=== PATIENT | male | born 1975 | race Hispanic/Latino ===

== ENCOUNTER 2021-08-29 16:03 | Emergency (ER) | payer SELFPAY ==
--- NOTE | 2021-08-29 19:02 | Emergency Department Report ---
ED Altered Mental Status HPI - General Chief Complaint: Altered Mental Status Stated Complaint: COMBATIVE BEHAVIOR Source: patient Mode of arrival: Stretcher Limitations: No Limitations - History of Present Illness Initial Comments: 45 yo M brought in by the city police with AMS after patient was pickup where he was very combative and swinging at people. Pt will not talk to me but just mumble his words. History is very limited at this time. No other modifying or associated factor reported. - Related Data Allergies Allergy/AdvReac Type Severity Reaction Status Date / Time No Known Allergies Allergy Verified 08/29/21 16:20 ED Review of Systems ROS: Stated complaint: COMBATIVE BEHAVIOR Other details as noted in HPI Comment: Unobtainable due to pts medical conditions (pt refuse to communicate of answer any of my verbal command) ED Physical Exam - General Limitations: Altered Mental Status, Other (pt is alert but refuse to talk ) General appearance: alert, in no apparent distress - Head Head exam: Present: normal inspection - Eye Eye exam: Present: normal appearance - ENT ENT exam: Present: normal exam, normal orophraynx, mucous membranes dry - Neck Neck exam: Present: normal inspection - Respiratory Respiratory exam: Present: normal lung sounds bilaterally. Absent: respiratory distress, accessory muscle use - Cardiovascular Cardiovascular Exam: Present: regular rate, normal rhythm, normal heart sounds - GI/Abdominal GI/Abdominal exam: Present: soft, normal bowel sounds. Absent: distended, tenderness - Extremities Exam Extremities exam: Present: normal inspection, normal capillary refill - Back Exam Back exam: Present: normal inspection. Absent: full ROM, tenderness - Neurological Exam Neurological exam: Present: alert - Psychiatric Psychiatric exam: Present: flat affect - Skin Skin exam: Present: normal color ED Course Vital Signs 08/29/21 08/29/21 08/29/21 16:20 20:00 20:53 Temperature 97.4 F L Pulse Rate 68 67 Respiratory 16 18 Rate Blood Pressure Blood Pressure 143/74 130/64 [Left] O2 Sat by Pulse 98 96 97 Oximetry 08/29/21 08/29/21 08/29/21 22:50 22:51 23:01 Temperature Pulse Rate 68 63 67 Respiratory 15 14 Rate Blood Pressure 145/79 Blood Pressure [Left] O2 Sat by Pulse 94 96 Oximetry 08/29/21 08/29/21 08/29/21 23:15 23:31 23:45 Temperature Pulse Rate 71 69 64 Respiratory 21 17 14 Rate Blood Pressure 145/79 145/79 145/79 Blood Pressure [Left] O2 Sat by Pulse 92 97 97 Oximetry 08/29/21 08/30/21 08/30/21 23:57 00:01 00:15 Temperature Pulse Rate 68 74 Respiratory 17 17 Rate Blood Pressure 149/81 149/81 Blood Pressure [Left] O2 Sat by Pulse 98 95 98 Oximetry 08/30/21 08/30/21 08/30/21 00:31 00:45 01:01 Temperature Pulse Rate 73 91 H 76 Respiratory 16 17 16 Rate Blood Pressure 149/81 149/81 123/54 Blood Pressure [Left] O2 Sat by Pulse 97 96 96 Oximetry 08/30/21 08/30/21 01:15 01:31 Temperature Pulse Rate 66 58 L Respiratory 13 19 Rate Blood Pressure 123/54 123/54 Blood Pressure [Left] O2 Sat by Pulse 99 Oximetry - Reevaluation(s) Reevaluation #1: 08/29/21 19:02 brought in by the police with AMS-- that could be among the following different diagnosis 1 Illicit drug overdose 2-CVA 3 Alcohol intoxication 4-Delirium 5-Sepsis So in other to rule out the above will order CT head for any intracranial abnormality, UDS for drug and alcohol and CBC, CMP and UA with TSH for any infectious process or electrolytes abnormality. 08/29/21 20:4 Noted with elevated TSH so will order a reflex free T4-- to rule out hypothyroidism-- pending at this time when patient is signed out to incoming physician at shift change 21:00 PM -- 08/29/21 20:46 CT head is still pending as well-- Reevaluation #2: 08/30/21 12:33 I reevaluate this patient this afternoon and reports feeling better and will like to be discharged home. His workup labs reviewed and within normal limit except UDS with THC, methamphetamine, benzodiazepine, and cocaine. Patient is stable enough to be discharged home. Warning given to quit illicit drug use to help his overall health. - Lab Data Result diagrams: 08/29/21 19:13 08/29/21 19:13 Lab Results 08/29/21 08/29/21 08/29/21 Range/Units 19:13 19:13 19:13 WBC 10.5 (4.5-11.0) K/mm3 RBC 4.92 (3.65-5.03) M/mm3 Hgb 14.5 (11.8-15.2) gm/dl Hct 44.1 (35.5-45.6) % MCV 90 (84-94) fl MCH 30 (28-32) pg MCHC 33 (32-34) % RDW 13.6 (13.2-15.2) % Plt Count 256 (140-440) K/mm3 Lymph % (Auto) 20.3 (13.4-35.0) % Gregg % (Auto) 7.7 H (0.0-7.3) % Eos % (Auto) 1.6 (0.0-4.3) % Baso % (Auto) 0.5 (0.0-1.8) % Lymph # (Auto) 2.1 (1.2-5.4) K/mm3 Gregg # (Auto) 0.8 (0.0-0.8) K/mm3 Eos # (Auto) 0.2 (0.0-0.4) K/mm3 Baso # (Auto) 0.1 (0.0-0.1) K/mm3 Seg Neutrophils % 69.9 (40.0-70.0) % Seg Neutrophils # 7.3 (1.8-7.7) K/mm3 PT 13.4 (12.2-14.9) Sec. INR 0.92 (0.87-1.13) APTT 34.6 (24.2-36.6) Sec. Sodium 140 (137-145) mmol/L Potassium 3.7 (3.6-5.0) mmol/L Chloride 102.4 (98-107) mmol/L Carbon Dioxide 24 (22-30) mmol/L Anion Gap 17 mmol/L BUN 10 (9-20) mg/dL Creatinine 0.9 (0.8-1.3) mg/dL Estimated GFR > 60 ml/min BUN/Creatinine Ratio 11 % Glucose 98 (75-100) mg/dL Calcium 8.9 (8.4-10.2) mg/dL Total Bilirubin 0.30 (0.1-1.2) mg/dL AST 29 (5-40) units/L ALT 20 (7-56) units/L Alkaline Phosphatase 104 (35-129) units/L Troponin T < 0.010 (0.00-0.029) ng/mL NT-Pro-B Natriuret Pep 146.9 (0-450) pg/mL Total Protein 7.0 (6.3-8.2) g/dL Albumin 4.4 (3.9-5) g/dL Albumin/Globulin Ratio 1.7 % TSH (0.270-4.200) mlU/mL Free T4 (0.76-1.46) ng/dL Urine Color (Yellow) Urine Turbidity (Clear) Urine pH (5.0-7.0) Ur Specific [place] (1.003-1.030) Urine Protein (Negative) mg/dL Urine Glucose (UA) (Negative) mg/dL Urine Ketones (Negative) mg/dL Urine Blood (Negative) Urine Nitrite (Negative) Urine Bilirubin (Negative) Urine Urobilinogen (<2.0) mg/dL Ur Leukocyte Esterase (Negative) Urine WBC (Auto) (0.0-6.0) /HPF Urine RBC (Auto) (0.0-6.0) /HPF Urine Bacteria (Auto) (Negative) /HPF Urine Mucus /HPF Urine Opiates Screen Urine Methadone Screen Ur Barbiturates Screen Ur Phencyclidine Scrn Ur Amphetamines Screen U Benzodiazepines Scrn Urine Cocaine Screen U Marijuana (THC) Screen Drugs of Abuse Note 08/29/21 08/30/21 08/30/21 Range/Units 19:13 04:37 04:37 WBC (4.5-11.0) K/mm3 RBC (3.65-5.03) M/mm3 Hgb (11.8-15.2) gm/dl Hct (35.5-45.6) % MCV (84-94) fl MCH (28-32) pg MCHC (32-34) % RDW (13.2-15.2) % Plt Count (140-440) K/mm3 Lymph % (Auto) (13.4-35.0) % Gregg % (Auto) (0.0-7.3) % Eos % (Auto) (0.0-4.3) % Baso % (Auto) (0.0-1.8) % Lymph # (Auto) (1.2-5.4) K/mm3 Gregg # (Auto) (0.0-0.8) K/mm3 Eos # (Auto) (0.0-0.4) K/mm3 Baso # (Auto) (0.0-0.1) K/mm3 Seg Neutrophils % (40.0-70.0) % Seg Neutrophils # (1.8-7.7) K/mm3 PT (12.2-14.9) Sec. INR (0.87-1.13) APTT (24.2-36.6) Sec. Sodium (137-145) mmol/L Potassium (3.6-5.0) mmol/L Chloride (98-107) mmol/L Carbon Dioxide (22-30) mmol/L Anion Gap mmol/L BUN (9-20) mg/dL Creatinine (0.8-1.3) mg/dL Estimated GFR ml/min BUN/Creatinine Ratio % Glucose (75-100) mg/dL Calcium (8.4-10.2) mg/dL Total Bilirubin (0.1-1.2) mg/dL AST (5-40) units/L ALT (7-56) units/L Alkaline Phosphatase (35-129) units/L Troponin T (0.00-0.029) ng/mL NT-Pro-B Natriuret Pep (0-450) pg/mL Total Protein (6.3-8.2) g/dL Albumin (3.9-5) g/dL Albumin/Globulin Ratio % TSH 6.090 H (0.270-4.200) mlU/mL Free T4 (0.76-1.46) ng/dL Urine Color Yellow (Yellow) Urine Turbidity Clear (Clear) Urine pH 6.0 (5.0-7.0) Ur Specific [place] 1.015 (1.003-1.030) Urine Protein <15 mg/dl (Negative) mg/dL Urine Glucose (UA) Neg (Negative) mg/dL Urine Ketones Neg (Negative) mg/dL Urine Blood Neg (Negative) Urine Nitrite Neg (Negative) Urine Bilirubin Neg (Negative) Urine Urobilinogen < 2.0 (<2.0) mg/dL Ur Leukocyte Esterase Neg (Negative) Urine WBC (Auto) 13.0 H (0.0-6.0) /HPF Urine RBC (Auto) 1.0 (0.0-6.0) /HPF Urine Bacteria (Auto) 1+ (Negative) /HPF Urine Mucus Few /HPF Urine Opiates Screen Negative Urine Methadone Screen Negative Ur Barbiturates Screen Negative Ur Phencyclidine Scrn Negative Ur Amphetamines Screen Positive U Benzodiazepines Scrn Positive Urine Cocaine Screen Positive U Marijuana (THC) Screen Positive Drugs of Abuse Note Disclamer 08/30/21 Range/Units 06:39 WBC (4.5-11.0) K/mm3 RBC (3.65-5.03) M/mm3 Hgb (11.8-15.2) gm/dl Hct (35.5-45.6) % MCV (84-94) fl MCH (28-32) pg MCHC (32-34) % RDW (13.2-15.2) % Plt Count (140-440) K/mm3 Lymph % (Auto) (13.4-35.0) % Gregg % (Auto) (0.0-7.3) % Eos % (Auto) (0.0-4.3) % Baso % (Auto) (0.0-1.8) % Lymph # (Auto) (1.2-5.4) K/mm3 Gregg # (Auto) (0.0-0.8) K/mm3 Eos # (Auto) (0.0-0.4) K/mm3 Baso # (Auto) (0.0-0.1) K/mm3 Seg Neutrophils % (40.0-70.0) % Seg Neutrophils # (1.8-7.7) K/mm3 PT (12.2-14.9) Sec. INR (0.87-1.13) APTT (24.2-36.6) Sec. Sodium (137-145) mmol/L Potassium (3.6-5.0) mmol/L Chloride (98-107) mmol/L Carbon Dioxide (22-30) mmol/L Anion Gap mmol/L BUN (9-20) mg/dL Creatinine (0.8-1.3) mg/dL Estimated GFR ml/min BUN/Creatinine Ratio % Glucose (75-100) mg/dL Calcium (8.4-10.2) mg/dL Total Bilirubin (0.1-1.2) mg/dL AST (5-40) units/L ALT (7-56) units/L Alkaline Phosphatase (35-129) units/L Troponin T (0.00-0.029) ng/mL NT-Pro-B Natriuret Pep (0-450) pg/mL Total Protein (6.3-8.2) g/dL Albumin (3.9-5) g/dL Albumin/Globulin Ratio % TSH (0.270-4.200) mlU/mL Free T4 1.00 (0.76-1.46) ng/dL Urine Color (Yellow) Urine Turbidity (Clear) Urine pH (5.0-7.0) Ur Specific [place] (1.003-1.030) Urine Protein (Negative) mg/dL Urine Glucose (UA) (Negative) mg/dL Urine Ketones (Negative) mg/dL Urine Blood (Negative) Urine Nitrite (Negative) Urine Bilirubin (Negative) Urine Urobilinogen (<2.0) mg/dL Ur Leukocyte Esterase (Negative) Urine WBC (Auto) (0.0-6.0) /HPF Urine RBC (Auto) (0.0-6.0) /HPF Urine Bacteria (Auto) (Negative) /HPF Urine Mucus /HPF Urine Opiates Screen Urine Methadone Screen Ur Barbiturates Screen Ur Phencyclidine Scrn Ur Amphetamines Screen U Benzodiazepines Scrn Urine Cocaine Screen U Marijuana (THC) Screen Drugs of Abuse Note Critical care attestation.: If time is entered above; I have spent that time in minutes in the direct care of this critically ill patient, excluding procedure time. ED Disposition Clinical Impression: Combative behavior, Cocaine abuse, Methamphetamine abuse, Cannabis abuse, B enzodiazepine abuse AMS (altered mental status) Qualifiers: Altered mental status type: unspecified Qualified Code(s): R41.82 - Altered mental status, unspecified Disposition: 01 HOME / SELF CARE / HOMELESS Is pt being admited?: No Does the pt Need Aspirin: No Condition: Stable Instructions: Stimulant Use Disorder-Cocaine, Substance Use Disorder and Mental Illness, Amphetamines Use Disorder, Substance Use Disorder, Supporting Someone With Substance Use Disorder, Methamphetamines Use Disorder Additional Instructions: It is very important that you quit illicit drug abuse to help your overall health Increase your daily fluid to help your hydration Call and schedule follow-up with your primary doctor in the next 3 to 5 days for progress Please do not hesitate to call or return to emergency room if your symptoms worsen Referrals: MAYNOR EVANS MD [Primary Care Provider] - 3-5 Days Time of Disposition: 12:37
[2021-08-29 19:51] LABS: Alanine Aminotransferase 20 units/L (7-56); Albumin 4.4 g/dL (3.9-5); BUN/Creatinine Ratio 11; Blood Urea Nitrogen 10 mg/dL (9-20); Calcium 8.9 mg/dL (8.4-10.2); Hemolysis Index 27
[2021-08-29 20:00] LABS: Basophils # (Auto) 0.1 K/mm3 (0.0-0.1); Basophils % (Auto) 0.5 % (0.0-1.8); Eosinophils # (Auto) 0.2 K/mm3 (0.0-0.4); Eosinophils % (Auto) 1.6 % (0.0-4.3); Hematocrit 44.1 % (35.5-45.6); Hemoglobin 14.5 gm/dl (11.8-15.2); Lymphocytes # (Auto) 2.1 K/mm3 (1.2-5.4); Lymphocytes % (Auto) 20.3 % (13.4-35.0); Mean Corpuscular HGB Conc 33 % (32-34); Mean Corpuscular Volume 90 fl (84-94); Monocytes # (Auto) 0.8 K/mm3 (0.0-0.8); Monocytes % (Auto) 7.7 % (0.0-7.3); Platelet Count 256 K/mm3 (140-440); Red Blood Count 4.92 M/mm3 (3.65-5.03); Red Cell Distribution Width 13.6 % (13.2-15.2)
[2021-08-29 20:17] LABS: INR 0.92 (0.87-1.13)
[2021-08-29 20:18] LABS: Partial Thromboplastin Time 34.6 Sec. (24.2-36.6)
--- NOTE | 2021-08-29 20:51 | Cat Scan Report ---
CT HEAD WITHOUT CONTRAST INDICATION / CLINICAL INFORMATION: AMS. TECHNIQUE: All CT scans at this location are performed using CT dose reduction for ALARA by means of automated e xposure control. COMPARISON: None available. FINDINGS: HEMORRHAGE: No evidence of intracranial hemorrhage or extra-axial fluid collection. EXTRA-AXIAL SPACES: Cortical sulci, sylvian fissures and basilar cisterns have an unremarkable appear ance. VENTRICULAR SYSTEM: Developmental asymmetry of the lateral ventricles is noted left slightly larger t reece right. This is unchanged. The third and lateral ventricles have an otherwise unremarkable appeara nce. CEREBRAL PARENCHYMA: No areas of abnormal brain parenchymal attenuation are identified. There is no i ndication of recent infarction. MIDLINE SHIFT OR HERNIATION: There is no mass effect. CEREBELLUM / BRAINSTEM: Brainstem and cerebellum have an unremarkable appearance. MIDLINE STRUCTURES:No abnormalities of the pituitary gland or pineal region are identified. INTRACRANIAL VESSELS: Calcified atherosclerotic plaque is seen along the course the cavernous segment s of both internal carotid arteries. This is a manifestation premature intercranial atherosclerotic d isease in this 45-year-old individual. ORBITS: visualized portions of the orbits have an unremarkable appearance. SOFT TISSUES of HEAD: No significant abnormality. CALVARIUM: Evaluation of bone windows reveals no abnormalities. PARANASAL SINUSES / MASTOID AIR CELLS: Frontal sinuses did not develop in this individual. Mucosal th ickening is present within the left sphenoid sinus and within posterior ethmoid air cells on the left . Visualized portions of the paranasal sinuses are otherwise free from inflammatory mucosal disease. Mastoid air cells are normally pneumatized. IMPRESSION: 1. No significant intercranial abnormality. No significant interval change in the CT appearance of th e brain since 03/10/2009. 2. Inflammatory changes are present in left sphenoid sinus and within posterior ethmoid air cells on the left. Signer Name: Chauncey Cm MD Signed: 08/29/2021 8:47 PM Workstation Name: [id number]
[2021-08-30 05:49] LABS: Methadone Screen,Urine Negative; Opiate Screen,Urine Negative
[2021-08-30 05:53] LABS: Bacteria,Urine 1+ /HPF (Negative); Bilirubin,Urine NEG (Negative); Blood,Urine NEG (Negative); Color,Urine Yellow (Yellow); Mucus,Urine FEW /HPF; Protein,Urine <15 mg/dL mg/dL (Negative); Urobilinogen,Urine < 2.0 mg/dL (<2.0)
[2021-08-30 06:07] LABS: Amphetamine Screen,Urine Positive; Benzodiazepines Screen,Urine Positive; Cannabinoid Screen,Urine Positive; Cocaine Screen,Urine Positive
--- NOTE | 2021-08-30 09:21 | Electrocardiograph Report ---
[facility], [place] Test Date: 2021-08-29 Test Time: 22:44:19 Pat Name: EPHRAIM WEBSTER Department: Room: Gender: M [employer]: KELSEY HARDEN : 1975 Requested By: SAMIRA DAVIS Order Number: [id number] Reading MD: Camacho Gutierrez Measurements Intervals [place] Rate: 61 P: 18 NC: 164 QRS: 52 QRSD: 97 T: 50 QT: 435 QTc: 439 Interpretive Statements Sinus rhythm No previous ECG available for comparison Electronically Signed On 08-30-2021 9:21:24 EDT by Camacho Gutierrez
--- NOTE | 2021-08-30 12:38 | Event Note ---
Date: 08/30/21 Patient seen and examined this afternoon reports feeling much better and would like to go home. No overnight issue reported by the physician or the nursing team. Please see the overall patient chart for details.
[2021-08-30 12:49] VITALS: BP 116/76
== END 2021-08-30 12:49 | disposition home or self-care (01) ==
LOC: EDBD → ED 16:03
DX: E03.9 Hypothyroidism, unspecified (principal); R45.6 Violent behavior; F14.10 Cocaine abuse, uncomplicated; F12.10 Cannabis abuse, uncomplicated; F15.10 Other stimulant abuse, uncomplicated; R41.82 Altered mental status, unspecified
CPT/HCPCS: 36415; 70450; 80053; 80307; 81001; 83880; 84439; 84443; 84484; 85025; 85610; 85730; 87086; 93005; 99284